=== PATIENT | male | born 1955 | race Caucasian/White ===

== ENCOUNTER 2020-02-18 17:13 | Observation (INO) ==
[2020-02-18] MEDS ORDERED: NULYTELY or GO-LYTELY PO SCH (19:00)
[2020-02-18] MEDS ORDERED: D5 1/2 NS 1000 ML 1,000 ML IV ONE (20:10)
[2020-02-18] MEDS ORDERED: PROTONIX INJ 40 MG VIAL ONE (20:11)
[2020-02-18 20:49] LABS: BASOPHILS # (AUTO) 0.1 X10^3/uL (0.0-0.1); EOSINOPHILS # (AUTO) 0.9 x10^3/uL (0.0-0.2); EOSINOPHILS % (AUTO) 10.2 % (0.9-2.9); HEMATOCRIT 38.7 % (42.0-54.0); HEMOGLOBIN 12.8 g/dL (13.5-18.0); LYMPHOCYTES # (AUTO) 0.9 X10^3/uL (1.3-2.9); LYMPHOCYTES % (AUTO) 10.7 % (21.0-51.0); MEAN CORPUSCULAR HEMOGLOBIN 29.7 pg (27.0-34.0); MEAN CORPUSCULAR HGB CONC 33.2 g/dL (33.0-35.0); MEAN CORPUSCULAR VOLUME 89.5 fL (80.0-100.0); MEAN PLATELET VOLUME 8.3 fL (7.4-11.0); MONOCYTES # (AUTO) 0.8 x10^3/uL (0.3-0.8); NEUTROPHILS # (AUTO) 5.8 x10^3/uL (2.2-4.8); NEUTROPHILS % (AUTO) 69.1 % (42.0-75.0); PLATELET COUNT 204 X10^3/uL (150.0-450.0); RED BLOOD COUNT 4.32 X10^6/uL (4.7-6.0); RED CELL DISTRIBUTION WIDTH 13.5 % (11.6-16.5); WHITE BLOOD COUNT 8.4 X10^3/uL (3.6-10.0)
[2020-02-18 21:00] LABS: ALANINE AMINOTRANSFERASE 42 Units/L (12-78); ALBUMIN 3.3 g/dL (3.4-5.0); ALKALINE PHOSPHATASE 50 Units/L (46-116); ASPARTATE AMINO TRANSFERASE 22 Units/L (15-37); BLOOD UREA NITROGEN 16 mg/dL (7-18); CALCIUM 8.7 mg/dL (8.5-10.1); CHLORIDE 106 mmol/L (98-107); COR CA(FOR HYPOALB) 9.3 mg/dL (8.5-10.1); CREATININE 1.07 mg/dL (0.70-1.30); SODIUM 141 mmol/L (136-145); TOTAL PROTEIN 6.3 g/dL (6.4-8.2); eGFR NON BLACK RACES > 60 (>60)
[2020-02-18] MEDS: D5 1/2 NS 1000 ML 1,000 ML IV SCH (21:00)
[2020-02-18] MEDS: PROTONIX INJ 40 MG VIAL IVP SCH (21:08)
[2020-02-18] MEDS ORDERED: NULYTELY or GO-LYTELY PO ONE (21:22)
[2020-02-19 00:17] VITALS: BMI 33.2
[2020-02-19] MEDS: D5 1/2 NS 1000 ML 1,000 ML IV SCH ×3 (02:58→16:38)
[2020-02-19 05:25] LABS: BASOPHILS # (AUTO) 0.1 X10^3/uL (0.0-0.1); BASOPHILS % (AUTO) 1.1 % (0.2-1.0); EOSINOPHILS # (AUTO) 0.9 x10^3/uL (0.0-0.2); EOSINOPHILS % (AUTO) 11.8 % (0.9-2.9); HEMATOCRIT 38.6 % (42.0-54.0); HEMOGLOBIN 12.6 g/dL (13.5-18.0); LYMPHOCYTES % (AUTO) 13.6 % (21.0-51.0); MEAN CORPUSCULAR HEMOGLOBIN 29.6 pg (27.0-34.0); MEAN CORPUSCULAR HGB CONC 32.7 g/dL (33.0-35.0); MEAN CORPUSCULAR VOLUME 90.4 fL (80.0-100.0); MEAN PLATELET VOLUME 8.7 fL (7.4-11.0); MONOCYTES # (AUTO) 0.7 x10^3/uL (0.3-0.8); MONOCYTES % (AUTO) 9.5 % (0.0-13.0); NEUTROPHILS # (AUTO) 4.6 x10^3/uL (2.2-4.8); PLATELET COUNT 207 X10^3/uL (150.0-450.0); RED BLOOD COUNT 4.27 X10^6/uL (4.7-6.0); RED CELL DISTRIBUTION WIDTH 13.8 % (11.6-16.5); WHITE BLOOD COUNT 7.2 X10^3/uL (3.6-10.0)
[2020-02-19 05:38] LABS: ALANINE AMINOTRANSFERASE 39 Units/L (12-78); ALBUMIN 3.3 g/dL (3.4-5.0); ALKALINE PHOSPHATASE 49 Units/L (46-116); ASPARTATE AMINO TRANSFERASE 20 Units/L (15-37); BLOOD UREA NITROGEN 13 mg/dL (7-18); CALCIUM 8.6 mg/dL (8.5-10.1); CARBON DIOXIDE 27.7 mmol/L (21-32); CHLORIDE 103 mmol/L (98-107); COR CA(FOR HYPOALB) 9.2 mg/dL (8.5-10.1); CREATININE 1.09 mg/dL (0.70-1.30); SODIUM 140 mmol/L (136-145); TOTAL PROTEIN 6.4 g/dL (6.4-8.2); eGFR NON BLACK RACES > 60 (>60)
[2020-02-19] MEDS: PROTONIX INJ 40 MG VIAL IVP SCH (10:00)
[2020-02-19] MEDS ORDERED: STERILE WATER IRRIGATION IR ONE (13:07)
[2020-02-19] MEDS ORDERED: NS 500 ML IV 500 ML IV ONE (13:22)
[2020-02-19] MEDS ORDERED: DIPRIVAN VIAL 40 ML ONE (13:31)
[2020-02-19 16:55] VITALS: BP 144/92
--- NOTE | 2020-02-20 08:34 | DR.CONSULT ---
CONSULT Consultation for Day of: Date: 02/19/20 Chief Complaint Chief Complaint: GI bleed Allergies Allergies Allergy/AdvReac Type Severity Reaction Status Date / Time No Known Drug Allergies Allergy Verified 02/19/20 00:18 History of Present Illness History of Present Illness: Mr. Blount is a 64y/o male with a PMH of mild COPD not on home O2 presented to the hospital for an EGD and colonoscopy. He was referred by his PCP in [facility] to Dr. Reese due to having GI bleed. Patient underwent both procedures without any complications. After the procedure, patient was noted to have atrial fibrillation on telemetry. EKG was done and it showed atrial fibrillation. Patient denies symptoms, no chest pain, SOB or palpitations. No prior hx of atrial fibrillation or any cardiac disease. He denies any symptoms in the past few weeks or months. 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 His HR was around mid 90s-low 100s, BP stable. Repeat EKG also showed atrial fibrillation but patient had no symptoms. Past Medical History Past Medical History: COPD Family History Family Medical History: Sudden Cardiac Social History Does patient currently use any type of tobacco product: Yes Have you used tobacco products in the last 12 months: Yes Type of Tobacco Use: Cigarettes Alcohol Use: DAILY Drug Use: None Medications Home Medications: No Known Drug Allergies Allergy (Verified 02/19/20 00:18) CONTINUE taking the following medications albuterol 90 mcg INHALATION BID PRN 02/19/20 [History] Review of Systems Constitutional: No Symptoms Reported Eyes: No Symptoms Reported ENT: No Symptoms Reported Respiratory: No Symptoms Reported Cardiovascular: No Symptoms Reported Gastrointestinal: No Symptoms Reported Genitourinary: No Symptoms Reported Musculoskeletal: No Symptoms Reported Skin: No Symptoms Reported Neurological: No Symptoms Reported Physical Exam Vital Signs: Temperature 97.6 F Pulse Rate [Apical] 102 Respiratory Rate 18 Blood Pressure [Left Arm] 144/92 O2 Sat by Pulse Oximetry 98 Oriented: Normal Eyes: Normal Ear: Normal Nose: Normal Throat: Normal Respiratory: Clear Throughout Cardiovascular: Tachycardia and Irregular Auscultation: Bowel Sounds: Normal Palpation: Normal Tenderness: Normal Skin: Normal Musculoskeletal: Normal Psychiatric: Normal Mood Description: Calm Affect: Normal Speech Pattern: Clear and Appropriate Plan Plan: Transient atrial fibrillation post-op could be 2/2 to anesthesia. Patient is completely asymptomatic and stable. Will discharge home with f/u with PCP wi thin 1-2 days.
== END 2020-02-19 18:20 | disposition home or self-care (01) ==
LOC: MED/SURG
PROVIDERS: ADMIT Surgery; ATTEND Surgery